=== PATIENT | male | born 1990 | race Caucasian/White ===

== ENCOUNTER 2022-02-18 16:58 | Emergency (ER) | payer OTHER, SELFPAY ==
[2022-02-18 16:59] VITALS: BP 147/94; PULSE 71; RESP 14; TEMP 35.9; O2SAT 98; BMI 33.1
--- NOTE | 2022-02-18 17:38 | EDS_ITS ---
HPI History of Present Illness Chief Complaint: Neuro S/Sx Informant: patient Narrative Narrative: Patient is a 31-year-old male with no past medical history presenting with numbness and tingling to the bottom of his left foot. Patient states last week he had muscle spasms in his leg going down into his calf as well as some discomfort in his lower back. He saw a chiropractor and was told one of his legs was shorter than the other and had an adjustment. His leg is been feeling sore but his back was feeling better. He had an x-ray of his lower lumbar/sacral spine at [facility] which she was told had some possible arthritis but was otherwise normal. Patient notes that since Monday morning he has had a [id number] sensation of the bottom of his left foot. He states his back feels fine. He continues to have sensation of fullness and soreness in his left calf. He is a people tell him that he could have a blood clot. Patient denies any history of DVT or PE and has no risk factors. He denies any chest pain, shortness of breath or difficulty breathing. He has no other complaints at this time. Denies any injury or trauma. Denies any saddle anesthesia, urinary or bowel incontinence. [facility] Medical History (Updated 02/18/22 @ 19:[address] Patito Marr DO) Back pain Home Medications NK 02/18/22 [History Last Taken Unknown] Allergy/AdvReac Type Severity Reaction Status Date / Time No Known Allergies Allergy Unverified 08/09/21 11:07 Social History Smoking Status: Never smoker ROS ROS ED Constitutional Constitutional ED: Denies chills or fever(s) Eyes Eyes: Denies change in vision ENT ENT ED: Denies rhinorrhea or sore throat Cardiovascular Cardiovascular: Denies chest pain Respiratory/Chest Respiratory/Chest: Denies cough Gastrointestinal Gastrointestinal: Denies abdominal pain or nausea Genitourinary Genitourinary ED: Denies dysuria or urinary frequency Musculoskeletal Musculoskeletal: Reports back pain; Denies arthralgias Integumentary Denies rash Neurologic Neurologic: Reports paresthesias LLE (Plantar aspect of foot); Denies headache(s) or weakness Psychiatric Psychiatric: Denies anxiety EXAM Physical Exam Const Vital Signs: 02/18/22 16:59 02/18/22 17:52 Temperature 96.7 F L Temperature Source Temporal Pulse Rate 71 Respiratory Rate 14 Respiratory Effort Normal Non-Labored Blood Pressure 147/94 H Blood Pressure Mean 111 Pulse Ox 98 Oxygen Delivery Method Room Air Positive well nourished and well developed General Appearance ED: well developed and NAD HEENT Reports moist mucous membranes Eyes PERRL and EOMs intact bilaterally Neck supple Chest Wall inspection of chest normal and palpation of chest normal Resp normal respiratory effort and clear to auscultation bilaterally Cardio regular rate, regular rhythm and no murmurs Cardio Narrative: 2+ bilateral DP pulses. Brisk capillary refill of the toes. GI normal to inspection, nondistended, normoactive bowel sounds, non-tender and non-distended Extremity normal to inspection General Extremety ED: Negative for tenderness Neuro oriented x3, CN's II-XII intact bilaterally and no sensory deficits noted Neuro Narrative: Sensation intact to light touch throughout. Patient has subjective paresthesias of the base of the left foot as well as the lateral plantar foot. Normal sensation of the dorsal foot. No pain with straight leg test bilaterally. Patient ambulates without any foot drop. Normal Babinski test. Motor Exam: strength 5/5 throughout Psych mental status grossly normal Skin no rashes or lesions noted and no wounds MDM MDM MDM Narrative Medical decision making narrative: Is evaluated for tingling to the base of his left foot as well as pain in his left leg. His symptoms to be more myalgia related. Venous duplex is negative. Patient is low risk for PE and I do not think a D-dimer is indicated. No acute electrolyte abnormalities however his total creatinine kinase is elevated at 963. This is consistent with some muscle breakdown. Not sure if the tingling is associated with proximal swelling or if he could have some type of co mpression of the L5-S1 nerve root as it does seem to follow a dermatomal pattern. Patient does not have a foot drop and does not require an emergent MRI. He is given IV fluids and Toradol in the ER. He is given outpatient referral for orthopedics as needed. He is counseled on return precautions. He verbalizes agreement understand this plan. Discharged home in stable condition. Lab Data Attestation: I reviewed the patient's lab results. Labs: Laboratory Results - last 24 hr 02/18/22 17:45 Sodium 139 Potassium 4.4 Chloride 105 Carbon Dioxide 28.0 Anion Gap 6 BUN 19 H Creatinine 0.90 Estim Creat Clear Calc 131.93 Est GFR (MDRD) Af Amer 125 Est GFR (MDRD) Non-Af 103 BUN/Creatinine Ratio 21.2 H Glucose 94 Calcium 9.4 Magnesium 2.1 Total Creatine Kinase 963 H Radiography Diagnostic Testing: Clinical Impression(s) from Imaging Studies Venous Duplex 02/18/22 17:40 IMPRESSION: There is no demonstrated deep venous thrombosis. Electronically Signed: Ruslan Bryant MD at 18:37 EDT Reading Location ID and State: [facility] / [place] , Service support , Discharge Plan Triage Chief Complaint: Neuro S/Sx ED Provider: Patito Marr Dx/Rx/DC Orders Clinical Impression: Paresthesia of left foot, Myalgia, Rhabdomyolysis Instructions: ED Myalgias, ED Rhabdomyolysis Prescriptions: No Action NK Primary Care Provider: Care Physician,No Primary Referrals: Fabricio Rain, [STAFF PHYSICIAN] - As Needed (if tingling in foot does not improve ) Care Physician,No Primary [Primary Care Provider] - Activity Restrictions/Additional Instructions: He has some signs of muscle breakdown likely associated with your recent leg spasms. I suspect the inflammation associated this could be causing the tingling in your foot. If it does not improve over the next week please follow- up with orthopedics as you could have an irritation to your lower spine that is causing the symptoms. Take ibuprofen and drink lots of fluids. Disposition Disposition: Home, Self Care
--- NOTE | 2022-02-18 17:40 | US_ITS ---
STUDY: VENOUS DOPPLER ULTRASOUND - LEFT LOWER EXTREMITY REASON FOR EXAM: Male, 31 years old. LEG PAIN AND SWELLING LT FOOT TINGLING AND LT CALF TIGHTNESS TECHNIQUE: Ultrasound evaluation of the deep vein system to include ken-scale imaging and compression was performed. Ken-scale imaging and Doppler sonographic evaluation, including duplex spectral analysis and qualitative color flow sonography, was performed. COMPARISON: None. FINDINGS: Common Femoral Vein: Normal compression, spontaneity and augmentation. Normal color Doppler. Common Femoral Vein/Greater Saphenous Junction: Normal compression, spontaneity and augmentation. Normal color Doppler. Superficial Femoral Proximal: Normal compression, spontaneity and augmentation. Normal color Doppler. Superficial Femoral Middle: Normal compression, spontaneity and augmentation. Normal color Doppler. Superficial Femoral Distal: Normal compression, spontaneity and augmentation. Normal color Doppler. Popliteal Vein: Normal compression, spontaneity and augmentation. Normal color Doppler. Posterior Tibial Vein: Normal compression, spontaneity and augmentation. Normal color Doppler. Peroneal Vein: Normal compression, spontaneity and augmentation. Normal color Doppler. There is no demonstrated deep venous thrombosis. US/Venous Duplex Imag/Limited/Uni IMPRESSION: There is no demonstrated deep venous thrombosis. Electronically Signed: Ruslan Bryant MD at 18:37 EDT ,
[2022-02-18 17:52] VITALS: BMI 33.1
[2022-02-18 18:30] LABS: Anion Gap 6 (5-15); BUN 19 mg/dL (7-18); BUN/Creat Ratio 21.2 RATIO (10-20); CPK Total, Creatine Kinase 963 U/L (39-308); Calcium,Total 9.4 mg/dL (8.5-10.1); Chloride 105 mmol/L (98-107); EST Glomerular Filtration Rate 103 mL/min (>60); Est Glom Filt Rate - Afr Amer 125 mL/min (>60); Estimated Creatinine Clearance 131.93 ml/min; Glucose 94 mg/dL (74-106); Magnesium 2.1 mg/dL (1.6-2.6); Potassium 4.4 mmol/L (3.5-5.1); Sodium Level 139 mmol/L (136-145)
[2022-02-18] MEDS: 0.9% Normal Saline 1,000 ML 999 ML IV (19:11)
[2022-02-18] MEDS: Ketorolac 15 MG/ML Vial IV (19:11)
== END 2022-02-18 20:06 | disposition home or self-care (01) ==
PROVIDERS: Emergency Provider Emergency Medicine; Visit Provider Emergency Medicine
DX: R20.2 Paresthesia of skin (principal); M62.82 Rhabdomyolysis; M79.662 Pain in left lower leg
CPT/HCPCS: 80048; 82550; 83735; 93971; 96361; 96374; 99284; J7030; A4216